=== PATIENT | female | born 1960 | race Two or more races ===

== ENCOUNTER 2025-05-27 10:06 | Outpatient (CLI) | payer MEDICAID ==
[2025-05-27 10:50] LABS: Nucleated Red Blood Cells % 0.0 %
[2025-05-27 10:52] LABS: Hematocrit 38.8 % (36.0-46.0); Hemoglobin 13.3 g/dL (12.2-16.2); Mean Corpuscular Hemoglobin 26.6 pg (28.0-32.0); Mean Corpuscular Volume 77.6 fL (80.0-100.0)
[2025-05-27 11:16] LABS: Microalb/Creat Ratio, Urine 14.0
[2025-05-27 11:17] LABS: Alanine Aminotransferase 15 U/L (7-40); Albumin 4.4 g/dL (3.2-4.8); Alkaline Phosphatase 108 U/L (46-116); Anion Gap 10 (5-15); BUN/Creatinine Ratio 9.5 (10.0-20.0); Blood Urea Nitrogen 9 mg/dL (9-23); Calcium 9.2 mg/dL (8.7-10.4); Carbon Dioxide 28 mmol/L (20-31); Chloride 99 mmol/L (98-107); Potassium 3.8 mmol/L (3.5-5.1); Sodium 137 mmol/L (136-145); Total Protein 7.4 g/dL (5.7-8.2)
[2025-05-27 11:18] LABS: Bilirubin, Total 0.7 mg/dL (0.2-1.0)
[2025-05-27 11:21] LABS: Glucose 349 mg/dL (74-106)
[2025-05-27 11:37] LABS: Cholesterol 200 mg/dL (< 200); HDL Cholesterol 38 mg/dL (40-59); Triglycerides 347 mg/dL (< 150)
== END 2025-05-27 17:00 | disposition home or self-care (01) ==
LOC: LAB 10:06
PROVIDERS: ATTEND Nurse Practitioner Family
DX: I12.9 Hypertensive chronic kidney disease with stage 1 through stage 4 chronic kidney disease, or unspecified chronic kidney disease (principal); E11.22 Type 2 diabetes mellitus with diabetic chronic kidney disease; N18.9 Chronic kidney disease, unspecified; E66.9 Obesity, unspecified; Z00.01 Encounter for general adult medical examination with abnormal findings
CPT/HCPCS: 36415; 80053; 80061; 82043; 82306; 82570; 83036; 84443; 85025

== ENCOUNTER 2025-06-22 13:46 | Inpatient (IN) | payer MEDICAID ==
[~2025-06-22] VITALS: Ht 165.1 cm; Wt 90.6 kg
--- NOTE | 2025-06-22 13:58 | ED.PDOC ---
HPI Comments 64-year-old female presents to the ED with a chief complaint of chest pain today (06/22/25). Patient states she woke up this morning experiencing chest pain, shortness of breath, headache. On 06/03/2025 she was diagnosed with sinusitis states she has not taken any medication. Yesterday, she noticed a pinkish color to her phlegm. Denies fever, chills, nausea, vomiting, diarrhea, dizziness, blurred vision, numbness/tingling, dysuria, hematuria, hematemesis. No other sy mptoms or modifying mitral present at this time. Chief Complaint: Chest Pain Time Seen by MD: 13:55 Reviewed Notes: Medications, Allergies Allergies: Coded Allergies: Hydroxyzine (Verified Allergy, Unknown, 06/22/25) Levofloxacin (Verified Allergy, Unknown, 06/22/25) Lisinopril (Verified Allergy, Unknown, 06/22/25) Information Source: Patient Mode of Arrival: Ambulatory Severity: Moderate Timing: Hours Duration: Since onset Prehospital treatment: None Location: Chest (L) Radiation: No Radiation Quality: Sharp Onset: At Rest PE Risk Factors: None History of: None Modifying Factors: Nothing Associated Signs and Symptoms: SOB Past Medical History Past Medical History (Other): enlarged heart 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 Pertinent RE RECORDING MIXER History Family History Family History: Reviewed,noncontributory to illness, No family hx of Cancer, No family hx of DM, No family hx of Heart prakash, No family hx of HTN, No family hx ofKidney prakash, No family hx of Liver prakash, No family hx of Lung prakash, No family hx of Stroke Social History Smoker: Non-Smoker Alcohol: Denies ETOH Use Drugs: Denies Drug Use Lives In: Home Constitutional: denies: chills, diaphoresis, fatigue, fever, malaise, sweats, weakness, others EENTM: denies: blurred vision, double vision, ear bleeding, ear discharge, ear drainage, ear pain, ear ringing, eye pain, eye redness, hearing loss, mouth pain, mouth swelling, nasal discharge, nose bleeding, nose congestion, nose pain, photophobia, tearing, throat pain, throat swelling, voice changes, others Respiratory: reports: shortness of breath; denies: cough, hemoptysis, orthopnea, SOB at rest, SOB with excertion, stridor, wheezing, others Cardiovascular: reports: chest pain; denies: dizzy spells, diaphoresis, Dyspnea on exertion, edema, irregular heart beat, left arm pain, lightheadedness, palpitations, PND, syncope, others Gastrointestinal: denies: abdomen distended, abdominal pain, blood streaked bowels, constipated, diarrhea, dysphagia, difficulty swallowing, hematemesis, melena, nausea, poor appetite, poor fluid intake, rectal bleeding, rectal pain, vomiting, others Genitourinary: denies: abnormal vagina bleeding, burning, dyspareunia, dysuria, flank pain, frequency, hematuria, incontinence, pain, , vagina discharge, urgency, others Neurological: reports: headache; denies: dizziness, fainting, left sided numbness, left sided weakness, numbness, paresthesia, pre-existing deficit, right sided numbness, right sided weakness, seizure, speech problems, tingling, tremors, weakness, others Musculoskeletal: denies: back pain, gout, joint pain, joint swelling, muscle pain, muscle stiffness, neck pain, others Integumetry: denies: bruises, change in color, change in hair/nails, dryness, laceration, lesions, lumps, rash, wounds, others Allergic/Immunocompromised: denies: Difficulty Healing, Frequent Infections, Hives, Itching, others Hematologic/Lymphatic: denies: anemia, blood clots, easy bleeding, easy bruising, swollen glands, others Endocrine: denies: excessive hunger, excessive sweating, excessive thirst, excessive urination, flushing, intolerance to cold, intolerance to heat, unexplained weight gain, unexplained weight loss, others Psychiatric: denies: anxiety, bipolar disorder, depression, hopeless, panic disorder, schizophrenia, sleepless, suicidal, others All Other Systems: Reviewed and Negative Physical Exam General Appearance: Normal HEENT: Normal ENT Inspection, Pharynx Normal, TMs Normal Neck: Full Range of Motion, Non-Tender, Normal, Normal Inspection Respiratory: Chest Non-Tender, Lungs Clear, No Accessory Muscle Use, No Respiratory Distress, Normal Breath Sounds Cardiovascular: No Edema, No JVD, No Murmur, No Gallop, Normal Peripheral Pulses, Regular Rate/Rhythm Breast Exam: Deferred Gastrointestinal: No Organomegaly, Non Tender, No Pulsatile Mass, Normal Bowel Sounds, Soft Genitalia: Deferred Pelvic: Deferred Rectal: Deferred Extremities: No calf tenderness, Normal capillary refill, Normal inspection, Normal range of motion, Non-tender, No pedal edema Musculoskeletal : Apperance: Normal Neurologic: Alert, pulp drier firer II-XII nml as Tested, No Motor Deficits, Normal Affect, Normal Mood, No Sensory Deficits Cerebellar Function: Normal Reflexes: Normal Skin: Dry, Normal Color, Warm Lymphatic: No Adenopathy Was a procedure done? Was a procedure done?: No CP Differential Dx Differential Diagnosis: PAC's Differential Diagnosis: HTN Essential, HTN Accelerated, HTN Encephalopathy Differential Diagnosis: Gastritis, Myocardial Infarction, Pericarditis X-Ray, Labs, Meds, VS Vital Signs Date Time Temp Pulse Resp B/P (MAP) Pulse Ox O2 Delivery O2 Flow Rate FiO2 06/22/25 14:54 66 06/22/25 13:52 73 06/22/25 13:49 98.3 74 16 155/79 96 98.3 Lab Test 06/22/25 15:17 06/22/25 14:25 Range/Units Troponin I High Sensitivity Pending 6 </=34 ng/L White Blood Count 8.1 4.4-10.8 10^3/uL Red Blood Count 5.02 4.0-5.20 10^6/uL Hemoglobin 13.4 12.2-16.2 g/dL Hematocrit 39.7 36.0-46.0 % Mean Corpuscular Volume 79.1 L 80.0-100.0 fL Mean Corpuscular Hemoglobin 26.7 L 28.0-32.0 pg Mean Corpuscular Hemoglobin Concent 33.8 32.0-36.0 g/dL Red Cell Distribution Width 13.6 11.8-14.3 % Platelet Count 284 140-450 10^3/uL Mean Platelet Volume 7.6 6.9-10.8 fL Neutrophils (%) (Auto) 73.9 37.0-80.0 % Lymphocytes (%) (Auto) 15.1 10.0-50.0 % Monocytes (%) (Auto) 6.5 0.0-12.0 % Eosinophils (%) (Auto) 3.7 0.0-7.0 % Basophils (%) (Auto) 0.8 0.0-2.0 % Neutrophils # (Auto) 6.0 1.6-8.6 10 ^3/uL Lymphocytes # (Auto) 1.2 0.4-5.4 10 ^3/uL Monocytes # (Auto) 0.5 0-1.3 10 ^3/uL Eosinophils # (Auto) 0.3 0-0.8 10 ^3/uL Basophils # (Auto) 0.1 0-0.2 10 ^3/uL Nucleated Red Blood Cells 0.0 % Sodium Level 142 136-145 mmol/L Potassium Level 3.7 3.5-5.1 mmol/L Chloride Level 104 98-107 mmol/L Carbon Dioxide Level 26 20-31 mmol/L Anion Gap 12 5-15 Blood Urea Nitrogen 8 L 9-23 mg/dL Creatinine 0.84 0.550-1.02 mg/dL Glomerular Filtration Rate Calc 78 >90 mL/min BUN/Creatinine Ratio 9.5 L 10.0-20.0 Serum Glucose 139 H 74-106 mg/dL Calcium Level 9.2 8.7-10.4 mg/dL Time of 1ST Reevaluation: 14:25 Reevaluation 1ST: Unchanged Patient Education/Counseling: Diagnosis, Treatment, Prognosis Family Education/Counseling: No Family Present SEPSIS Sepsis Screen Physician Orders Electrocardigram (06/22/25 15:01) Electrocardigram (06/22/25 17:01) Chest Portable (06/22/25 14:19) Troponin-I Hs (06/22/25 15:19) Troponin-I Hs (06/22/25 17:19) Vital Signs Date Time Temp Pulse Resp B/P (MAP) Pulse Ox O2 Delivery O2 Flow Rate FiO2 06/22/25 14:54 66 06/22/25 13:52 73 06/22/25 13:49 98.3 74 16 155/79 96 98.3 Laboratory Tests Test 06/22/25 14:25 White Blood Count 8.1 10^3/uL (4.4-10.8) Departure 1 Departure Time of Disposition: 15:33 (Patient presented with chest pain that was concerning for possible STEMI, ACS, PE, Pneumonia, Muscle Strain, COPD, Dissection. Data: 1. I ordered and reviewed the result of at least 3 labs including a CBC, BMP, and Troponin. 2. I independently interpreted the following tests: EKG which shows sinus arrhythmia and Chest X-ray which shows benign chest.Risk:This patient has a high risk of morbidity due to further diagnostic testing or treatment and may suffer from an acute cardiac or respiratory disorder. Workup reveals concern for ACS and patient should be admitted for further workup and possible expert consultation. ) Impression: Primary Impression: Acute chest pain Additional Impression: Shortness of breath Disposition: ADMITTED INPATIENT Admit to: Med Surg Condition: Serious Critical Care Note Critical Care Time?: Yes Critical care comment: Acute chest pain Authorized and Performed by: César Brewer MD Total critical care time: Approximately 44 minutes Due to a high probability of clinically significant, life threatening deterioration, the patient required my highest level of preparedness to intervene emergently and I personally spent this critical care time directly and personally managing the patient. This critical care time included obtaining a history; examining the patient; pulse oximetry; ordering and review of studies; arranging urgent treatment with development of a management plan; evaluation of patient's response to treatment; frequent reassessment; and, discussions with other providers. This critical care time was performed to assess and manage the high probability of imminent, life-threatening deterioration that could result in multi-organ failure. It was exclusive of separately billable procedures and treating other patients and teaching time. Please see my other sections and the rest of the note for further information on patient assessment and treatment. Stability Stability form required: No Heart Score Heart Score: Heart Score Response (Comments) Value History Moderate Suspicious 1 EKG Repolarization Disturb 1 Age 45-64 1 Risk Factors >3 or Hx ASHD 2 Troponin >3 x's Normal limit 2 Total 7 I personally scribed for CÉSAR BREWER MD ([email or web address]) on 06/22/25 at 13:58. Electronically submitted by Marcia Carrasco ([email or web address]). CÉSAR BREWER MD Jun 22, 2025 13:58
--- NOTE | 2025-06-22 14:03 | ECG ---
[facility] Test Date: 2025-06-22 Test Time: 13:52:02 Pat Name: MEREDITH UNDERWOOD Department: ED Room: 0216T Gender: F Extrusion Supervisor: ramandeep : 1960 Requested By: CÉSAR SOTO Order Number: [id number] Reading MD: Booker Mcginnis Measurements Intervals [place] Rate: 73 P: -17 [place]: 173 QRS: -11 QRSD: 98 T: 101 QT: 405 QTc: 447 Interpretive Statements Sinus rhythm Nonspecific T abnormalities, lateral leads Baseline wander in lead(s) I,III,aVL,V1,V4,V5 Electronically Signed On 06-28-2025 14:10:44 PDT by Booker Mcginnis Please click the below link to view image of tracing.
[2025-06-22 14:43] LABS: Hematocrit 39.7 % (36.0-46.0); Hemoglobin 13.4 g/dL (12.2-16.2); Mean Corpuscular Hemoglobin 26.7 pg (28.0-32.0); Mean Corpuscular Volume 79.1 fL (80.0-100.0); Nucleated Red Blood Cells % 0.0 %
[2025-06-22 14:53] LABS: Chloride 104 mmol/L (98-107); Potassium 3.7 mmol/L (3.5-5.1); Sodium 142 mmol/L (136-145)
[2025-06-22 14:54] LABS: Anion Gap 12 (5-15); Calcium 9.2 mg/dL (8.7-10.4); Carbon Dioxide 26 mmol/L (20-31)
--- NOTE | 2025-06-22 14:57 | DVH ---
CLINICAL HISTORY: cp TECHNIQUE: Single view of the chest was obtained. COMPARISON: None FINDINGS: The heart size and pulmonary vasculature are normal. The lungs are clear. IMPRESSION: NO ACUTE CARDIOPULMONARY PROCESS.
[2025-06-22 14:59] LABS: BUN/Creatinine Ratio 9.5 (10.0-20.0); Blood Urea Nitrogen 8 mg/dL (9-23); Glucose 139 mg/dL (74-106)
[2025-06-22] MEDS ORDERED: NITROGLYCERIN 0.4 MG SL TAB SL PRN (16:30)
[2025-06-22] MEDS ORDERED: HYDROcodone-ACET 5/325MG TAB PO PRN (16:30)
[2025-06-22] MEDS ORDERED: DEXTROSE (50%) 50ML SYRG IV PRN (16:45)
[2025-06-22] MEDS: InsuLIN REG 1unit/0.01ml Soln (100units/ml) SC SCH ×2 (17:00→22:11)
--- NOTE | 2025-06-22 17:01 | DVHHPRES ---
History of Present Illness Resident Creating Document: VESTA RCIHEY RESIDENT History of Present Illness History of present illness: David Singh is a 64-year-old female with past medical history of type 2 diabetes mellitus, dyslipidemia, essential hypertension, osteoarthritis, aortic atherosclerosis, pulmonary nodules presen kristi to the hospital with complaints of chest pain since 4 days, cough sweating, headache and weakness since 9 days. She sees the cough was associated with yellow sputum. She rates the pain 7 on 10 in intensity, sharp in quality, on and off, with no radiation, no aggravating or relieving factors. Martha PMHx:type 2 diabetes mellitus, dyslipidemia, essential hypertension, osteoart hritis, aortic atherosclerosis, pulmonary nodules PSHx: Cholecystectomy Family history: Father of [place], small-cell lung cancer in sister for Social history: 30 pack year smoking history, denies alcohol use and drug use Home medication: Tizanidine, diclofenac, atorvastatin, Jardiance, losartan, aspirin, amlodipine, Allergic history: Hydroxyzine, levofloxacin, lisinopril Review of Systems Review of Systems General: patient denies fever, fatigue, weaknes, sweating, any recent changes in appetite and weight HEENT: No headaches, visiual changes, hearing loss, tinnitus, nasal congestion and discharge, and sore throat. Cardiovascular: Denies palpitations, dyspnea on exertion, orthopnea, or claudication. Complains of chest pain Respiratory: Complains of cough. Gastrointestinal: Denies nausea, vomiting, dysphagia, odynophagia, heartburn, abdominal pain, flatulence, bloating, diarrhea, constipation, change in stool, or blood in stool. Genitourinary: No dysuria, hematuria, discharge, frequency, urgency, nocturia, incontinence, and urinary retention. Endocrine: No heat or cold intolerance, polydipsia, polyuria, and polyphagia. Neurological: No dizziness, extremity weakness and numbness, tremors, gait disturbance, seizures, and memory impairment. Psychiatric: Denies depression, anxiety,or insomnia. Musculoskeletal: Denies neck pain, stiffness and swelling, back pain, muscle weakness, joint pain, stiffness, swelling, or limited range of motion. Skin: No rashes, itching, skin lesion, changes in hair, nail, skin texture and breast. Hematologic/Lymphatic: Denies easy bruising, bleeding tendencies, or lymph node enlargement. Allergies: Coded Allergies: Hydroxyzine (Verified Allergy, Unknown, 06/22/25) Levofloxacin (Verified Allergy, Unknown, 06/22/25) Lisinopril (Verified Allergy, Unknown, 06/22/25) Medications Current Medications Medications Dose Ordered Sig/Ronny Route Start Time Stop Time Status Last Admin Dose Admin Acetaminophen 325 mg Q4HP PRN PO 06/22/25 16:30 Acetaminophen/ Hydrocodone Bitart 1 tab Q4HP PRN PO 06/22/25 16:30 Nitroglycerin 0.4 mg Q5MINP PRN SL 06/22/25 16:30 Atorvastatin Calcium 20 mg HS PO 06/22/25 22:00 UNV Diagnostic Test (Pha) 1 strip ACHS 06/22/25 17:00 UNV Insulin Human Regular HS SC 06/22/25 22:00 UNV Insulin Human Regular AC SC 06/22/25 17:00 UNV Dextrose 50 ml UD PRN IV 06/22/25 16:45 UNV Aspirin 81 mg DAILY PO 06/23/25 10:00 UNV Losartan Potassium 25 mg DAILY PO 06/23/25 10:00 UNV Exam Vital Signs Vital Signs Date Time Temp Pulse Resp B/P (MAP) Pulse Ox O2 Delivery O2 Flow Rate FiO2 06/22/25 15:43 98.2 69 16 148/76 (100) 96 98.2 Exam General Appearance: Alert, Oriented X3, Cooperative, No acute distress HEENT: Atraumatic, PERRLA, EOMI, Mucous membrane moist/pink Respiratory: Clear to auscultation, Normal air movement Cardiovascular: Regular rate, Normal S1, Normal S2, No murmurs, chest wall tenderness present Abdominal: Normal bowel sounds, Soft, No tenderness, No hepatospenomegaly, No masses Extremities: No clubbing, No cyanosis, No edema, Normal pulses, No tenderness/swelling Skin: No rashes, No breakdown, No significant lesion Neuro: Normal gait, Normal speech, Strength at 5/5 X4 ext, Normal tone, Sensation intact, Cranial nerves 3-12 NL, Reflexes 2+ Psych/Mental Status: Mental status NL, Mood NL Labs/Xrays Labs Test 06/22/25 15:17 06/22/25 14:25 Range/Units Troponin I High Sensitivity 6 </=34 ng/L White Blood Count 8.1 4.4-10.8 10^3/uL Red Blood Count 5.02 4.0-5.20 10^6/uL Hemoglobin 13.4 12.2-16.2 g/dL Hematocrit 39.7 36.0-46.0 % Mean Corpuscular Volume 79.1 L 80.0-100.0 fL Mean Corpuscular Hemoglobin 26.7 L 28.0-32.0 pg Mean Corpuscular Hemoglobin Concent 33.8 32.0-36.0 g/dL Red Cell Distribution Width 13.6 11.8-14.3 % Platelet Count 284 140-450 10^3/uL Mean Platelet Volume 7.6 6.9-10.8 fL Neutrophils (%) (Auto) 73.9 37.0-80.0 % Lymphocytes (%) (Auto) 15.1 10.0-50.0 % Monocytes (%) (Auto) 6.5 0.0-12.0 % Eosinophils (%) (Auto) 3.7 0.0-7.0 % Basophils (%) (Auto) 0.8 0.0-2.0 % Neutrophils # (Auto) 6.0 1.6-8.6 10 ^3/uL Lymphocytes # (Auto) 1.2 0.4-5.4 10 ^3/uL Monocytes # (Auto) 0.5 0-1.3 10 ^3/uL Eosinophils # (Auto) 0.3 0-0.8 10 ^3/uL Basophils # (Auto) 0.1 0-0.2 10 ^3/uL Nucleated Red Blood Cells 0.0 % Sodium Level 142 136-145 mmol/L Potassium Level 3.7 3.5-5.1 mmol/L Chloride Level 104 98-107 mmol/L Carbon Dioxide Level 26 20-31 mmol/L Anion Gap 12 5-15 Blood Urea Nitrogen 8 L 9-23 mg/dL Creatinine 0.84 0.550-1.02 mg/dL Glomerular Filtration Rate Calc 78 >90 mL/min BUN/Creatinine Ratio 9.5 L 10.0-20.0 Serum Glucose 139 H 74-106 mg/dL Calcium Level 9.2 8.7-10.4 mg/dL SEPSIS Sepsis Screen Date sepsis recognized/suspect: Jun 22, 2025 Time Sepsis recognized/suspect: 1352 Recent Procedure: No On Antibiotic Therapy: No Respiratory Rate >20: No Heart Rate >90: No Temp<36 C (96.8 F) or >38.3 C: No SBP <90 or MAP <65 mmHG: No New Acute Mental Status Change: No Is the patient on CPAP, BIPAP,: No Physician Orders Electrocardigram (06/22/25 15:01) Electrocardigram (06/22/25 17:01) Chest Portable (06/22/25 14:19) Troponin-I Hs (06/22/25 17:19) Allergies (06/22/25 16:16) Code Status (06/22/25 16:16) Acetaminophen Tablet (Tylenol Tablet) (06/22/25 16:30) Hydrocodone-Acet 5/325mg Tab (Roland 5/32 (06/22/25 16:30) Complete Blood Count (06/23/25 04:00) Comprehensive Metabolic Panel (06/23/25 04:00) Cardiac Diet-2gna,Lofat,Lochol (06/22/25 Dinner) Echo 2d Mode Cardiac Dop (06/22/25 16:16) Condition: Fair (06/22/25 16:16) Nitroglycerin Sublingual (Ntrostat Subli (06/22/25 16:30) Stat Ekg For Chest Pain (06/22/25 16:16) Rn Hemodialysis For 24 Hours (06/22/25 16:16) Notify Of Changes From Base (06/22/25 16:16) Admit (06/22/25 16:21) Atorvastatin (Lipitor) (06/22/25 22:00) Glucose Blood (Accu-Chek Comfort Curve T (06/22/25 17:00) Insulin R (Human) (Insulin R) (06/22/25 22:00) Insulin R (Human) (Insulin R) (06/22/25 17:00) Dextrose 50% Syringe (06/22/25 16:45) Aspirin Tablet (06/23/25 10:00) Losartan Tablet (Cozaar Tablet) (06/23/25 10:00) Urinalysis (06/22/25 16:40) Erythrocyte Sedimentation Rate (06/22/25 16:40) Covid19 Antigen [place] (06/22/25 ) Rapid Influenza A&B (06/22/25 16:40) Respiratory Culture W/ Gs (06/22/25 16:40) Sputum Induction (06/22/25 16:40) Vital Signs Date Time Temp Pulse Resp B/P (MAP) Pulse Ox O2 Delivery O2 Flow Rate FiO2 06/22/25 15:43 98.2 69 16 148/76 (100) 96 98.2 06/22/25 14:54 66 06/22/25 13:52 73 06/22/25 13:49 98.3 74 16 155/79 96 98.3 Laboratory Tests Test 06/22/25 14:25 White Blood Count 8.1 10^3/uL (4.4-10.8) Assessment/Plan Assessment/Plan Assessment and plan Chest pain to rule out ACS Probably musculoskeletal, reproducible chest pain Aspirin Atorvastatin Follow Echo To rule out upper respiratory tract infection Follow influenza and COVID results Type 2 diabetes mellitus Sliding scale insulin Last hemoglobin A1c 9 Target BG in-hospital 140-180 Dyslipidemia Continue atorvastatin Essential hypertension Continue amlodipine and losartan Osteoarthritis Continue home medications Anxiety disorder Continue Bupropion PUD prophylaxis: protonix 40mg DVT prophylaxis: brisk movement. Barriers to discharge: Medical diagnosis and management in progress. Patient lives with family. Independent for ADL.. PCP: Dr. Martha Yanez Specialist Relevant To Admission: Nonrelevant Case discussed with Dr. Gonzalez Code Status: Full Code. Complex patient care discussion needed. Spend total 35 minutes for bedside assessment, case discussion and management. Plan discussed with: Patient My Orders Orders - VESTA RICHEY RESIDENT Procedure Category Date Status Time Allergies IRMA 06/22/25 In Process 16:16 Code Status CODE 06/22/25 Transmitted 16:16 Acetaminophen Tablet PHA 06/22/25 In Process (Tylenol Tablet) 16:30 Hydrocodone-Acet PHA 06/22/25 In Process 5/325mg Tab (Roland 16:30 Complete Blood Count LAB 06/23/25 Verified 04:00 Comprehensive LAB 06/23/25 Verified Metabolic Panel 04:00 Cardiac DIET 06/22/25 Transmitted Diet-2gna,Lofat,Lochol Dinner Echo 2d Mode Cardiac US 06/22/25 Logged DOP 16:16 Condition: Fair IRMA 06/22/25 In Process 16:16 Nitroglycerin PHA 06/22/25 In Process Sublingual (Ntrostat 16:30 Stat Ekg For Chest IRMA 06/22/25 In Process Pain 16:16 Rn Hemodialysis For IRMA 06/22/25 In Process 24 Hours 16:16 Notify Md Of Changes IRMA 06/22/25 In Process From Base 16:16 Admit ADMIT 06/22/25 Transmitted 16:21 Date of Service: Jun 22, 2025 Billing Provider: KAROL GONZALEZ MD Common Visit Codes: 77496-PEGOEJE INP/OBS CARE (HIGH) Secondary Visit Codes: 73174-[id number] CARE PLAN 30 MINUTES VESTA RICHEY RESIDENT Jun 22, 2025 17:01 KAROL GONZALEZ MD Jul 02, 2025 21:19
[2025-06-22] MEDS: ACCU-CHEK COMFORT CURVE STRIP VI SCH (17:24)
--- NOTE | 2025-06-22 18:28 | ECG ---
[facility] Test Date: 2025-06-22 Test Time: 16:52:39 Pat Name: MEREDITH UNDERWOOD Department: [facility] ED Patient ID: [id number] Room: 0216T Gender: F Clinical Phlebotomist: mike : 1960 Requested By: CÉSAR SOTO Order Number: [id number] Reading MD: Booker Mcginnis Measurements Intervals [place] Rate: 71 P: -16 [place]: 171 QRS: -17 QRSD: 98 T: 97 QT: 393 QTc: 428 Interpretive Statements Sinus rhythm LVH with secondary repolarization abnormality Anterior Q waves, possibly due to LVH Electronically Signed On 06-28-2025 14:12:12 PDT by Booker Mcginnis Please click the below link to view image of tracing.
[2025-06-22 20:22] LABS: COVID19 ANTIGEN SOFIA FIA NEGATIVE (NEGATIVE)
[2025-06-22 21:13] VITALS: BP 141/73; PULSE 65; PULSE 73; RESP 18; RESP 19; TEMP 96.4; O2SAT 94
[2025-06-22] MEDS ORDERED: ALBUAER3 IN (21:32)
[2025-06-22] MEDS ORDERED: DICL75TA3 PO (21:32)
[2025-06-22] MEDS ORDERED: AML5T PO (21:32)
[2025-06-22] MEDS ORDERED: ATOR20TA50 PO (21:32)
[2025-06-22] MEDS ORDERED: EMPA1TAB3 PO (21:32)
[2025-06-22] MEDS ORDERED: TIZA4CAP PO (21:32)
[2025-06-22] MEDS ORDERED: BUPR-239 PO (21:32)
[2025-06-22] MEDS ORDERED: ASPI81CH59 PO (21:32)
[2025-06-22] MEDS ORDERED: LOSA-533 PO (21:32)
[2025-06-22] MEDS ORDERED: INSU1INJ19 SC (21:32)
[2025-06-22] MEDS: ATORVASTATIN 20 MG TAB PO SCH (22:07)
[2025-06-22 22:28] VITALS: BP 149/87; PULSE 69; RESP 19; TEMP 98.2; O2SAT 94
[2025-06-23] VITALS (7 sets, daily range): BP systolic 136–159; BP diastolic 67–88; PULSE 62–70; RESP 17–18; TEMP 97.5–98.5; O2SAT 92–98
[2025-06-23] MEDS: ACETAMINOPHEN 325 MG TAB PO PRN (05:35)
[2025-06-23 06:05] LABS: Hematocrit 37.5 % (36.0-46.0); Hemoglobin 13.0 g/dL (12.2-16.2); Mean Corpuscular Hemoglobin 26.9 pg (28.0-32.0); Mean Corpuscular Volume 77.8 fL (80.0-100.0); Nucleated Red Blood Cells % 0.1 %
[2025-06-23 06:19] LABS: Alanine Aminotransferase 10 U/L (7-40); Albumin 4.4 g/dL (3.2-4.8); Alkaline Phosphatase 95 U/L (46-116); Anion Gap 12 (5-15); BUN/Creatinine Ratio 13.9 (10.0-20.0); Blood Urea Nitrogen 10 mg/dL (9-23); Calcium 9.4 mg/dL (8.7-10.4); Carbon Dioxide 25 mmol/L (20-31); Chloride 104 mmol/L (98-107); Potassium 3.7 mmol/L (3.5-5.1); Sodium 141 mmol/L (136-145); Total Protein 7.4 g/dL (5.7-8.2)
[2025-06-23 06:20] LABS: Bilirubin, Total 0.4 mg/dL (0.2-1.0)
[2025-06-23 06:21] LABS: Glucose 157 mg/dL (74-106)
[2025-06-23] MEDS: PANTOPRAZOLE 40 MG/10 ML VIAL INJ IV SCH (09:09)
[2025-06-23] MEDS: LOSARTAN POTASSIUM 25 MG TAB PO SCH (09:10)
--- NOTE | 2025-06-23 11:21 | ECG ---
[facility] Test Date: 2025-06-22 Test Time: 14:54:34 Pat Name: MEREDITH UNDERWOOD Department: ED Room: 0216T A Gender: F Snap Shearer: mike : 1960 Requested By: CÉSAR SOTO Order Number: [id number] Reading MD: Booker Mcginnis Measurements Intervals [place] Rate: 66 P: -13 [place]: 170 QRS: 2 QRSD: 102 T: 99 QT: 404 QTc: 424 Interpretive Statements Sinus rhythm Borderline repolarization abnormality Electronically Signed On 06-28-2025 14:11:26 PDT by Booker Mcginnis Please click the below link to view image of tracing.
[2025-06-23 11:38] LABS: Urine Protein, UAD Negative (Negative)
--- NOTE | 2025-06-23 16:33 | DVHINCON2 ---
Date Seen: Jun 23, 2025 Referring Physician MD Ariel Reason for Consultation Chest pain History of Present Illness This is a 64-year-old female who presented to the emergency room with a chief complaint of chest pain for nine days. Describes the chest pain as substernal, nonradiating, sharp/pressure-like, and associated with chest congestion including a productive cough with white sputum. At times the cough triggers the pain and other times it does not. She underwent a 12 lead electrocardiogram revealing a sinus rhythm with nonspecific T-wave inversion to lateral leads. Serial troponin levels are negative. Significant medical history includes hypertension, dyslipidemia, insulin-dependent diabetes mellitus, lung nodules for the past 10 years and currently awaiting referral to pulmonology, COPD, asthma, bronchitis, history of tobacco use including 38 pack-years, and obesity. Past Medical History Past medical history reviewed. No other significant than mentioned above. Past Surgical History Cholecystectomy Family History: FH: heart attack G8 BROTHER FH: heart failure G8 MOTHER, G8 FATHER, FH: lung cancer G8 SISTER, Family History Family history reviewed. Father: from CHF complications at 63 y.o. Mother: from CHF complications at 56 y.o. Youngest brother: CAD with coronary stent Social History Denies the use of illicit drugs, alcohol, or tobacco use. Quit tobacco at 51 y.o. including a total of 38 pack-years. Allergies: Coded Allergies: Hydroxyzine (Verified Allergy, Unknown, 06/22/25) Levofloxacin (Verified Allergy, Unknown, 06/22/25) Lisinopril (Verified Allergy, Unknown, 06/22/25) Home Meds Reported Medications Amlodipine Besylate (NORVASC TABLET) 5 Mg Tb, 10 MG PO DAILY, TAB 06/22/25 Bupropion Hcl (Bupropion Hcl Sr) 200 Mg Tab, 150 MG PO DAILY, TAB 06/22/25 Aspirin (Aspirin Low Dose) 81 Mg Chw, 81 MG PO DAILY, TAB.CHEW 06/22/25 Losartan Potassium (Losartan Potassium) 25 Mg Tab, 25 MG PO DAILY, TAB 06/22/25 Empagliflozin (Jardiance) 25 Mg Tab, 25 MG PO DAILY, TAB 06/22/25 Atorvastatin Calcium (ATORVASTATIN CALCIUM) 20 Mg Tab, 20 MG PO HS, TAB 06/22/25 Diclofenac Sodium (Diclofenac Sodium Dr) 75 Mg Tab, 75 MG PO BID, TAB 06/22/25 Insulin Glargine (Basaglar Kwikpen) 100 Unit/Ml Inj, 30 UNIT SC BID, INJ 06/22/25 Tizanidine Hydrochloride (Zanaflex) 4 Mg Cap, 4 MG PO HS, CAP 06/22/25 Albuterol Sulfate (VENTOLIN MDI) 90 Mcg Ih, 2 PUFF IN PRN for SHORTNESS OF BREATH, INH 06/22/25 Home Meds Home medications reviewed. Current Medications Current Medications Medications (Trade) Dose Ordered Sig/Ronny Route PRN Reason Start Time Stop Time Status Last Admin Acetaminophen (Tylenol Tablet) 325 mg Q4HP PRN PO MILD PAIN (1-3 PAIN SCALE) 06/22/25 16:30 06/23/25 05:35 Acetaminophen/ Hydrocodone Bitart ([place] 5/325MG Tab) 1 tab Q4HP PRN PO MODERATE PAIN (4-6 PAIN SCALE) 06/22/25 16:30 Nitroglycerin (Ntrostat Sublingual) 0.4 mg Q5MINP PRN SL FOR CHEST PAIN 06/22/25 16:30 Atorvastatin Calcium (Lipitor) 20 mg HS PO 06/22/25 22:00 06/22/25 22:07 Diagnostic Test (Pha) (Accu-Chek Comfort Curve T) 1 strip ACHS 06/22/25 17:00 06/23/25 11:38 Insulin Human Regular (InsuLIN R) HS SC 06/22/25 22:00 06/22/25 22:11 Insulin Human Regular (InsuLIN R) AC SC 06/22/25 17:00 06/23/25 11:45 Dextrose 50 ml UD PRN IV Blood Sugar LESS THAN 60 06/22/25 16:45 Aspirin 81 mg DAILY PO 06/23/25 10:00 06/23/25 09:09 Losartan Potassium (Cozaar Tablet) 25 mg DAILY PO 06/23/25 10:00 06/23/25 09:10 Pantoprazole Sodium (Protonix) 40 mg DAILY IV 06/23/25 10:00 06/23/25 09:09 Review of Systems Constitutional: No symptom reported Ears, Nose, & Throat: No symptom reported Eyes: No symptom reported Neurological: No symptoms reported Pulmonary/Respiratory: Productive cough of whitish sputum Cardiovascular: Chest pain Gastrointestinal: No symptom reported Genitourinary: No symptom reported Musculoskeletal: No symptom reported Skin: No symptom reported Psychiatric: No symptom reported Endocrine: No symptom reported Hemotologic/Lymphatic: No symptom reported Vital Signs Vital Signs Date Time Temp Pulse Resp B/P (MAP) Pulse Ox O2 Delivery O2 Flow Rate FiO2 06/23/25 09:10 158/88 06/23/25 08:00 70 06/23/25 07:30 97.7 17 92 97.7 06/22/25 21:13 Room Air* 0 21 Physical Exam General Appearance: Cooperative. Well developed. Obese. In no acute distress Head Exam: Normal inspection Neck Exam: Normal inspection. Non-tender. Normal alignment Pulmonary/Respiratory: Chest non-tender. Clear bilateral breath sounds Cardiovascular/Chest: Regular rate and rhythm. S1, S2. Sinus rhythm with nonspecific changes to lateral leads. No murmurs. No JVD. Peripheral Pulses: 2+ Radial (R). 2+ Radial (L). 2+ Pedal (R). 2+ Pedal (L) Abdominal Exam: Normal bowel sounds. Soft. Nontender. No hepatospenomegaly. No masses Ankle Exam: Negative ankle edema Lower extremities: Negative lower extremity edema Neuro/Mental Status: A&O x4. Coherent Thoughts/Psych: Normal thought pattern. Appropriate mood and affect. Good judgement and insight Appearance: In no acute distress Skin Exam: Normal inspection. Normal color. Warm. Dry Labs/Diagnostic Data Labs Test 06/23/25 11:37 06/23/25 10:00 06/23/25 04:57 06/22/25 19:50 Range/Units POC Glucose 244 H 70-106 mg/dl Urine Color Light-yellow Yellow Urine Clarity Clear Clear Urine pH 6.0 5.0-9.0 Urine Specific [place] 1.015 1.001-1.035 Urine Protein Negative Negative Urine Ketones Negative Negative Urine Blood Negative Negative /uL Urine Nitrite Negative Negative Urine Bilirubin Negative Negative Urine Urobilinogen Normal Negative mg/dL Urine Leukocyte Esterase Negative Negative /uL Urine RBC 1 0 - 4 /hpf Urine Microscopic WBC < 1 0-5 /HPF Urine Squamous Epithelial Cells Few <5 /hpf Urine Bacteria None seen None Seen /hpf Urine Glucose 4+ H Normal mg/dL White Blood Count 6.3 4.4-10.8 10^3/uL Red Blood Count 4.82 4.0-5.20 10^6/uL Hemoglobin 13.0 12.2-16.2 g/dL Hematocrit 37.5 36.0-46.0 % Mean Corpuscular Volume 77.8 L 80.0-100.0 fL Mean Corpuscular Hemoglobin 26.9 L 28.0-32.0 pg Mean Corpuscular Hemoglobin Concent 34.6 32.0-36.0 g/dL Red Cell Distribution Width 13.6 11.8-14.3 % Platelet Count 252 140-450 10^3/uL Mean Platelet Volume 7.6 6.9-10.8 fL Neutrophils (%) (Auto) 61.5 37.0-80.0 % Lymphocytes (%) (Auto) 21.6 10.0-50.0 % Monocytes (%) (Auto) 10.6 0.0-12.0 % Eosinophils (%) (Auto) 5.5 0.0-7.0 % Basophils (%) (Auto) 0.8 0.0-2.0 % Neutrophils # (Auto) 3.9 1.6-8.6 10 ^3/uL Lymphocytes # (Auto) 1.4 0.4-5.4 10 ^3/uL Monocytes # (Auto) 0.7 0-1.3 10 ^3/uL Eosinophils # (Auto) 0.3 0-0.8 10 ^3/uL Basophils # (Auto) 0.1 0-0.2 10 ^3/uL Nucleated Red Blood Cells 0.1 % Sodium Level 141 136-145 mmol/L Potassium Level 3.7 3.5-5.1 mmol/L Chloride Level 104 98-107 mmol/L Carbon Dioxide Level 25 20-31 mmol/L Anion Gap 12 5-15 Blood Urea Nitrogen 10 9-23 mg/dL Creatinine 0.72 0.550-1.02 mg/dL Glomerular Filtration Rate Calc 94 >90 mL/min BUN/Creatinine Ratio 13.9 10.0-20.0 Serum Glucose 157 H 74-106 mg/dL Calcium Level 9.4 8.7-10.4 mg/dL Total Bilirubin 0.4 0.2-1.0 mg/dL Aspartate Amino Transferase (AST) 15 13-40 U/L Alanine Aminotransferase (ALT) 10 7-40 U/L Alkaline Phosphatase 95 46-116 U/L Total Protein 7.4 5.7-8.2 g/dL Albumin 4.4 3.2-4.8 g/dL Influenza Type A Antigen Negative Negative Influenza Type B Antigen Negative Negative SARS-CoV-2 Antigen (Rapid) Negative NEGATIVE Test 06/22/25 17:41 06/22/25 14:25 Range/Units Troponin I High Sensitivity 5 </=34 ng/L Erythrocyte Sedimentation Rate 26 H 0-20 mm/hr Assessment Probable cardiac chest pain Rule out structural heart disease Pertinent family hx for CV disease Insulin-dependent diabetes mellitus, uncontrolled HgbA1C 11.7% Hypertension Dyslipidemia COPD/bronchitis Hx of tobacco dependence Obesity Plan/Recommendation (Dr. Mcginnis) We will continue further cardiac evaluation with a transthoracic echocardiogram to rule out structural heart disease. The patient has also been scheduled for a Cardiolite stress test with Lexiscan to rule out coronary ischemia. Heart Score is five placing her at a moderate risk for major cardiac events. In the meantime, continue lipid lowering agent, single antiplatelet therapy, blood pressure control, & tight glycemic control. Initiate DVT/DVT prophylaxis. Further orders per clinical course. Thank you for allowing us to participate in this patient's care. Please call if you have any questions or concerns. This medical document was created using an electronic medical record system with voice recognition software and computerized dictation system. Although this document has been carefully reviewed, there might still be some phonetic and typographical errors. Occasional wrong-word or ``sound-alike substitutions may have occurred due to the inherent limitations of voice recognition software. These areas are purely typographical due to imperfections of the software programs and do not reflect any compromise in the patient's medical care. Please read the chart carefully and recognize, using context, where these substitutions have occurred. Plan discussed with: Patient, Other NYHA Physical activity limitations: NA Date of Service: Jun 23, 2025 Billing Provider: MELVIN BARTON Cardiology Common Codes: [id number] INP/OBS CARE (High) MELVIN BARTON Jun 23, 2025 16:33
--- NOTE | 2025-06-23 16:45 | DVHPNRES ---
Progress Note Date Seen: Jun 23, 2025 Resident Creating Document: VESTA RICHEY RESIDENT Medical Necessity Reason Pt with a Central, PICC or Fol: No Subjective Review of Systems David Singh is a 64-year-old female with past medical history of type 2 diabetes mellitus, dyslipidemia, essential hypertension, osteoarthritis, aortic atherosclerosis, pulmonary nodules presented to the hospital with complaints of chest pain since 4 days, cough sweating, headache and weakness since 9 days. She sees the cough was associated with yellow sputum. She rates the pain 7 on 10 in intensity, sharp in quality, on and off, with no radiation, no aggravating or relieving factors. PMHx:type 2 diabetes mellitus, dyslipidemia, essential hypertension, osteoarthritis, aortic atherosclerosis, pulmonary nodules PSHx: Cholecystectomy Family history: Father of [place], small-cell lung cancer in sister for Social history: 30 pack year smoking history, denies alcohol use and drug use Home medication: Tizanidine, diclofenac, atorvastatin, Jardiance, losartan, aspirin, amlodipine, Allergic history: Hydroxyzine, levofloxacin, lisinopril patient seen at bedside. No new complaints. Patient says chest pain has come down. General: patient denies fever, fatigue, weaknes, sweating, any recent changes in appetite and weight HEENT: No headaches, visiual changes, hearing loss, tinnitus, nasal congestion and discharge, and sore throat. Cardiovascular: Denies palpitations, dyspnea on exertion, orthopnea, or claudication. Complains of chest pain Respiratory: Complains of cough. Gastrointestinal: Denies nausea, vomiting, dysphagia, odynophagia, heartburn, abdominal pain, flatulence, bloating, diarrhea, constipation, change in stool, or blood in stool. Genitourinary: No dysuria, hematuria, discharge, frequency, urgency, nocturia, incontinence, and urinary retention. Endocrine: No heat or cold intolerance, polydipsia, polyuria, and polyphagia. Neurological: No dizziness, extremity weakness and numbness, tremors, gait disturbance, seizures, and memory impairment. Psychiatric: Denies depression, anxiety,or insomnia. Musculoskeletal: Denies neck pain, stiffness and swelling, back pain, muscle weakness, joint pain, stiffness, swelling, or limited range of motion. Skin: No rashes, itching, skin lesion, changes in hair, nail, skin texture and breast. Hematologic/Lymphatic: Denies easy bruising, bleeding tendencies, or lymph node enlargement. Objective vital signs Vital Sign Date Time Temp Pulse Resp B/P (MAP) Pulse Ox O2 Delivery O2 Flow Rate FiO2 06/23/25 09:10 158/88 06/23/25 08:00 70 06/23/25 07:30 97.7 17 92 97.7 06/22/25 21:13 Room Air* 0 21 Total Intake and Output 06/22/25 06/22/25 06/23/25 15:00 23:00 07:00 Intake Total 250 ml Balance 250 ml medications Current Medications Medications Dose Ordered Sig/Ronny Route Start Time Stop Time Status Last Admin Dose Admin Acetaminophen 325 mg Q4HP PRN PO 06/22/25 16:30 06/23/25 05:35 325 MG Acetaminophen/ Hydrocodone Bitart 1 tab Q4HP PRN PO 06/22/25 16:30 Nitroglycerin 0.4 mg Q5MINP PRN SL 06/22/25 16:30 Atorvastatin Calcium 20 mg HS PO 06/22/25 22:00 06/22/25 22:07 20 MG Diagnostic Test (Pha) 1 strip ACHS 06/22/25 17:00 06/23/25 11:38 1 STRIP Insulin Human Regular HS SC 06/22/25 22:00 06/22/25 22:11 2 UNITS Insulin Human Regular AC SC 06/22/25 17:00 06/23/25 11:45 6 UNITS Dextrose 50 ml UD PRN IV 06/22/25 16:45 Aspirin 81 mg DAILY PO 06/23/25 10:00 06/23/25 09:09 81 MG Losartan Potassium 25 mg DAILY PO 06/23/25 10:00 06/23/25 09:10 25 MG Pantoprazole Sodium 40 mg DAILY IV 06/23/25 10:00 06/23/25 09:09 40 MG Chlorthalidone 25 mg DAILY@BREAKFAST PO 06/24/25 08:00 Enoxaparin Sodium 30 mg DAILY SC 06/24/25 10:00 Examination General Appearance: Alert, Oriented X3, Cooperative, No acute distress HEENT: Atraumatic, PERRLA, EOMI, Mucous membrane moist/pink Respiratory: Clear to auscultation, Normal air movement Cardiovascular: Regular rate, Normal S1, Normal S2, No murmurs, chest wall tenderness present Abdominal: Normal bowel sounds, Soft, No tenderness, No hepatospenomegaly, No masses Extremities: No clubbing, No cyanosis, No edema, Normal pulses, No tenderness/swelling Skin: No rashes, No breakdown, No significant lesion Neuro: Normal gait, Normal speech, Strength at 5/5 X4 ext, Normal tone, Sensation intact, Cranial nerves 3-12 NL, Reflexes 2+ Psych/Mental Status: Mental status NL, Mood NL laboratory and microbiology Laboratory Tests 06/23/25 04:57 Test 06/23/25 04:57 Range/Units Serum Glucose 157 H 74-106 mg/dL Problem List/Assessment/Plan Problem List/Assessment/Plan Assessment and plan Chest pain to rule out ACS Probably musculoskeletal, reproducible chest pain Aspirin Atorvastatin Follow Echo To rule out upper respiratory tract infection Follow influenza and COVID results Type 2 diabetes mellitus Sliding scale insulin Last hemoglobin A1c 9 Target BG in-hospital 140-180 Dyslipidemia Continue atorvastatin Essential hypertension Continue amlodipine and losartan Osteoarthritis Continue home medications Anxiety disorder Continue Bupropion PUD prophylaxis: protonix 40mg DVT prophylaxis: brisk movement. Barriers to discharge: Medical diagnosis and management in progress. Patient lives with family. Independent for ADL.. PCP: Dr. Martha Yanez Specialist Relevant To Admission: Nonrelevant Case discussed with Dr. Gonzalez Code Status: Full Code. Complex patient care discussion needed. Spend total 35 minutes for bedside assessment, case discussion and management. Plan discussed with: Patient Plan discussed with: Patient My Orders My Orders Orders - VESTA RICHEY Procedure Category Date Status Time Pantoprazole PHA 06/23/25 In Process (Protonix) 10:00 * Cardiology Consult CONS 06/23/25 Transmitted 07:06 Date of Service: Jun 23, 2025 Billing Provider: KAROL GONZALEZ MD Common Visit Codes: [id number] INP/OBS CARE(HIGH) Secondary Visit Codes: [id number] CARE PLAN 30 MINUTES VESTA RICHEY Jun 23, 2025 16:45 KAROL GONZALEZ MD Jul 02, 2025 21:18
[2025-06-23] MEDS: CHLORTHALIDONE 25 MG TAB PO ONE (17:35)
[2025-06-23] MEDS: INSULIN LANTUS (GLARGINE) 1 /0.01ml (100units/ml) SC SCH (21:48)
[2025-06-24] VITALS (8 sets, daily range): BP systolic 114–172; BP diastolic 61–84; PULSE 64–79; RESP 16–18; TEMP 97.7–98.7; O2SAT 94–99
[2025-06-24 07:36] LABS: Hematocrit 39.3 % (36.0-46.0); Hemoglobin 13.3 g/dL (12.2-16.2); Mean Corpuscular Hemoglobin 26.5 pg (28.0-32.0); Mean Corpuscular Volume 78.2 fL (80.0-100.0); Nucleated Red Blood Cells % 0.0 %
[2025-06-24] MEDS: REGADENOSON 0.4 MG/5 ML SYRG IV ONE ×2 (08:55→09:00)
[2025-06-24] MEDS: ENOXAPARIN SOD 30 MG/0.3 ML SYRINGE SC SCH (09:57)
[2025-06-24] MEDS: CHLORTHALIDONE 25 MG TAB PO SCH (10:05)
[2025-06-24 11:18] LABS: Alanine Aminotransferase 10 U/L (7-40); Albumin 4.5 g/dL (3.2-4.8); Alkaline Phosphatase 93 U/L (46-116); Anion Gap 16 (5-15); BUN/Creatinine Ratio 10.3 (10.0-20.0); Calcium 9.8 mg/dL (8.7-10.4); Carbon Dioxide 22 mmol/L (20-31); Chloride 103 mmol/L (98-107); Potassium 3.7 mmol/L (3.5-5.1); Sodium 141 mmol/L (136-145); Total Protein 7.5 g/dL (5.7-8.2)
--- NOTE | 2025-06-24 11:24 | DVHPNRES ---
Progress Note Date Seen: Jun 24, 2025 Resident Creating Document: VESTA RICHEY RESIDENT Medical Necessity Reason Pt with a Central, PICC or Fol: No Subjective Review of Systems Patient seen at bedside. complains of headache. Had an episode of shortness and breath last night. She was put on 2L O2. David Singh is a 64-year-old female with past medical history of type 2 diabetes mellitus, dyslipidemia, essential hypertension, osteoarthritis, aortic atherosclerosis, pulmonary nodules presented to the hospital with complaints of chest pain since 4 days, cough sweating, headache and weakness since 9 days. She sees the cough was associated with yellow sputum. She rates the pain 7 on 10 in intensity, sharp in quality, on and off, with no radiation, no aggravating or relieving factors. PMHx:type 2 diabetes mellitus, dyslipidemia, essential hypertension, osteoarthritis, aortic atherosclerosis, pulmonary nodules PSHx: Cholecystectomy Family history: Father of [place], small-cell lung cancer in sister for Social history: 30 pack year smoking history, denies alcohol use and drug use Home medication: Tizanidine, diclofenac, atorvastatin, Jardiance, losartan, aspirin, amlodipine, Allergic history: Hydroxyzine, levofloxacin, lisinopril General: patient denies fever, fatigue, weaknes, sweating, any recent changes in appetite and weight HEENT: No headaches, visiual changes, hearing loss, tinnitus, nasal congestion and discharge, and sore throat. Cardiovascular: Denies palpitations, dyspnea on exertion, orthopnea, or claudication. Complains of chest pain Respiratory: Complains of cough. Gastrointestinal: Denies nausea, vomiting, dysphagia, odynophagia, heartburn, abdominal pain, flatulence, bloating, diarrhea, constipation, change in stool, or blood in stool. Genitourinary: No dysuria, hematuria, discharge, frequency, urgency, nocturia, incontinence, and urinary retention. Endocrine: No heat or cold intolerance, polydipsia, polyuria, and polyphagia. Neurological: No dizziness, extremity weakness and numbness, tremors, gait disturbance, seizures, and memory impairment. Psychiatric: Denies depression, anxiety,or insomnia. Musculoskeletal: Denies neck pain, stiffness and swelling, back pain, muscle weakness, joint pain, stiffness, swelling, or limited range of motion. Skin: No rashes, itching, skin lesion, changes in hair, nail, skin texture and breast. Hematologic/Lymphatic: Denies easy bruising, bleeding tendencies, or lymph node enlargement. Objective vital signs Vital Sign Date Time Temp Pulse Resp B/P (MAP) Pulse Ox O2 Delivery O2 Flow Rate FiO2 06/24/25 09:56 132/72 06/24/25 08:58 98.3 68 18 99 98.3 06/24/25 08:00 Room Air* 2 N/A Nasal Cannula* Total Intake and Output 06/23/25 06/23/25 06/24/25 15:00 23:00 07:00 Intake Total 560 ml 150 ml Balance 560 ml 150 ml medications Current Medications Medications Dose Ordered Sig/Ronny Route Start Time Stop Time Status Last Admin Dose Admin Acetaminophen 325 mg Q4HP PRN PO 06/22/25 16:30 06/24/25 09:55 325 MG Acetaminophen/ Hydrocodone Bitart 1 tab Q4HP PRN PO 06/22/25 16:30 Nitroglycerin 0.4 mg Q5MINP PRN SL 06/22/25 16:30 Atorvastatin Calcium 20 mg HS PO 06/22/25 22:00 06/23/25 21:43 20 MG Diagnostic Test (Pha) 1 strip ACHS 06/22/25 17:00 06/24/25 06:17 1 STRIP Insulin Human Regular HS SC 06/22/25 22:00 06/23/25 21:48 4 UNITS Insulin Human Regular AC SC 06/22/25 17:00 06/24/25 06:16 2 UNITS Dextrose 50 ml UD PRN IV 06/22/25 16:45 Aspirin 81 mg DAILY PO 06/23/25 10:00 06/24/25 09:55 81 MG Losartan Potassium 25 mg DAILY PO 06/23/25 10:00 06/24/25 09:56 25 MG Pantoprazole Sodium 40 mg DAILY IV 06/23/25 10:00 06/24/25 09:56 40 MG Chlorthalidone 25 mg DAILY@BREAKFAST PO 06/24/25 08:00 06/24/25 10:05 25 MG Enoxaparin Sodium 30 mg DAILY SC 06/24/25 10:00 06/24/25 09:57 30 MG Insulin Glargine 13 units HS SC 06/23/25 19:15 06/23/25 21:52 13 UNITS Examination General Appearance: Alert, Oriented X3, Cooperative, No acute distress HEENT: Atraumatic, PERRLA, EOMI, Mucous membrane moist/pink Respiratory: Clear to auscultation, Normal air movement Cardiovascular: Regular rate, Normal S1, Normal S2, No murmurs, chest wall tenderness present Abdominal: Normal bowel sounds, Soft, No tenderness, No hepatospenomegaly, No masses Extremities: No clubbing, No cyanosis, No edema, Normal pulses, No tenderness/swelling Skin: No rashes, No breakdown, No significant lesion Neuro: Normal gait, Normal speech, Strength at 5/5 X4 ext, Normal tone, Sensation intact, Cranial nerves 3-12 NL, Reflexes 2+ Psych/Mental Status: Mental status NL, Mood NL laboratory and microbiology Laboratory Tests 06/24/25 05:41 Test 06/24/25 05:41 Range/Units Serum Glucose Pending Problem List/Assessment/Plan Problem List/Assessment/Plan Assessment and plan Chest pain to rule out ACS reproducible chest pain Aspirin Atorvastatin Follow Echo Cardiology recommended stress test To rule out upper respiratory tract infection -ve influenza and COVID result Type 2 diabetes mellitus Sliding scale insulin Last hemoglobin A1c 9 Target BG in-hospital 140-180 Dyslipidemia Continue atorvastatin Essential hypertension Continue amlodipine and losartan Osteoarthritis Continue home medications Anxiety disorder Continue Bupropion PUD prophylaxis: protonix 40mg DVT prophylaxis: brisk movement. Barriers to discharge: Medical diagnosis and management in progress. Patient lives with family. Independent for ADL.. PCP: Dr. Martha Yanez Specialist Relevant To Admission: Nonrelevant Case discussed with Dr. Gonzalez Code Status: Full Code. Complex patient care discussion needed. Spend total 35 minutes for bedside assessment, case discussion and management. Plan discussed with: Patient Plan discussed with: Patient My Orders My Orders Orders - VESTA RICHEY Procedure Category Date Status Time Comprehensive LAB 06/24/25 In Process Metabolic Panel 04:00 D-Dimer LAB 06/24/25 Logged 09:55 Complete Blood Count LAB 06/25/25 Verified 04:00 Comprehensive LAB 06/25/25 Verified Metabolic Panel 04:00 Date of Service: Jun 24, 2025 Billing Provider: KAROL GONZALEZ MD Common Visit Codes: [id number] INP/OBS CARE(HIGH) VESTA RICHEY Jun 24, 2025 11:24 KAROL GONZALEZ MD Jul 02, 2025 21:18
[2025-06-24 11:29] LABS: Bilirubin, Total 0.6 mg/dL (0.2-1.0)
[2025-06-24 11:51] LABS: Blood Urea Nitrogen 8 mg/dL (9-23); Glucose 130 mg/dL (74-106)
--- NOTE | 2025-06-24 16:13 | DVHPN2 ---
Consult Progress Note Date Seen: Jun 24, 2025 Subjective Review of Systems: CVS:Normal, RESPIRATORY:Normal, NEURO:Normal Other Systems: Denies any cardiac symptoms Objective vital signs Vital Sign Date Time Temp Pulse Resp B/P (MAP) Pulse Ox O2 Delivery O2 Flow Rate FiO2 06/24/25 12:40 97.9 65 18 116/70 (85) 98 97.9 06/24/25 08:00 Room Air* 2 N/A Nasal Cannula* Total Intake and Output 06/23/25 06/23/25 06/24/25 15:00 23:00 07:00 Intake Total 560 ml 150 ml Balance 560 ml 150 ml medications Current Medications Medications Dose Ordered Sig/Ronny Route Start Time Stop Time Status Last Admin Dose Admin Acetaminophen 325 mg Q4HP PRN PO 06/22/25 16:30 06/24/25 09:55 325 MG Acetaminophen/ Hydrocodone Bitart 1 tab Q4HP PRN PO 06/22/25 16:30 Nitroglycerin 0.4 mg Q5MINP PRN SL 06/22/25 16:30 Atorvastatin Calcium 20 mg HS PO 06/22/25 22:00 06/23/25 21:43 20 MG Diagnostic Test (Pha) 1 strip ACHS 06/22/25 17:00 06/24/25 11:46 1 STRIP Insulin Human Regular HS SC 06/22/25 22:00 06/23/25 21:48 4 UNITS Insulin Human Regular AC SC 06/22/25 17:00 06/24/25 11:49 6 UNITS Dextrose 50 ml UD PRN IV 06/22/25 16:45 Aspirin 81 mg DAILY PO 06/23/25 10:00 06/24/25 09:55 81 MG Losartan Potassium 25 mg DAILY PO 06/23/25 10:00 06/24/25 09:56 25 MG Pantoprazole Sodium 40 mg DAILY IV 06/23/25 10:00 06/24/25 09:56 40 MG Chlorthalidone 25 mg DAILY@BREAKFAST PO 06/24/25 08:00 06/24/25 10:05 25 MG Enoxaparin Sodium 30 mg DAILY SC 06/24/25 10:00 06/24/25 09:57 30 MG Insulin Glargine 13 units HS SC 06/23/25 19:15 06/23/25 21:52 13 UNITS Examination: LUNGS:Normal, CVS:Normal, NEURO:Normal laboratory and microbiology Laboratory Tests 06/24/25 05:41 Test 06/24/25 05:41 Range/Units Serum Glucose 130 H 74-106 mg/dL Problem List/Assessment/Plan Problem List/Assessment/Plan Probable cardiac chest pain Rule out structural heart disease Pertinent family hx for CV disease Insulin-dependent diabetes mellitus, uncontrolled HgbA1C 11.7% Hypertension Dyslipidemia COPD/bronchitis Hx of tobacco dependence Obesity Plan/Recommendation (Dr. Mcginnis) Preliminary transthoracic echocardiogram revealed optimal LV function (dictated report pending). Preliminary Cardiolite stress test as read by Dr. Gomes is negative for ischemia (dictated report pending). Continue lipid lowering agent, blood pressure control, & tight glycemic control. There is no further cardiac work-up indicated at this time. Kindly call with any questions or concerns. Thank you for allowing us to participate in this patient's care. This medical document was created using an electronic medical record system with voice recognition software and computerized dictation system. Although this document has been carefully reviewed, there might still be some phonetic and typographical errors. Occasional wrong-word or ``sound-alike substitutions may have occurred due to the inherent limitations of voice recognition software. These areas are purely typographical due to imperfections of the software programs and do not reflect any compromise in the patient's medical care. Please read the chart carefully and recognize, using context, where these substitutions have occurred. Plan discussed with: Patient, Other Date of Service: Jun 24, 2025 Billing Provider: MELVIN BARTON Cardiology Common Codes: [id number] HOSP CARE(High MELVIN BARTON Jun 24, 2025 16:13
[2025-06-25 01:00] VITALS: BP 121/67; PULSE 65; RESP 14; TEMP 97.7; O2SAT 93
[2025-06-25 05:00] VITALS: BP 119/70; PULSE 65; RESP 16; TEMP 97.9; O2SAT 91
[2025-06-25 07:01] LABS: Nucleated Red Blood Cells % 0.1 %
[2025-06-25 07:04] LABS: Hematocrit 41.0 % (36.0-46.0); Hemoglobin 13.8 g/dL (12.2-16.2); Mean Corpuscular Hemoglobin 26.1 pg (28.0-32.0); Mean Corpuscular Volume 77.6 fL (80.0-100.0)
[2025-06-25 07:15] LABS: Alanine Aminotransferase 10 U/L (7-40); Albumin 4.5 g/dL (3.2-4.8); Alkaline Phosphatase 94 U/L (46-116); Anion Gap 11 (5-15); BUN/Creatinine Ratio 13.8 (10.0-20.0); Blood Urea Nitrogen 11 mg/dL (9-23); Calcium 9.7 mg/dL (8.7-10.4); Carbon Dioxide 30 mmol/L (20-31); Chloride 100 mmol/L (98-107); Glucose 95 mg/dL (74-106); Sodium 141 mmol/L (136-145)
[2025-06-25 07:16] LABS: Total Protein 7.6 g/dL (5.7-8.2)
[2025-06-25 07:17] LABS: Bilirubin, Total 0.6 mg/dL (0.2-1.0)
[2025-06-25 07:22] LABS: Potassium 3.3 mmol/L (3.5-5.1)
[2025-06-25 08:00] VITALS: PULSE 72
[2025-06-25 08:16] LABS: Cholesterol 122 mg/dL (< 200)
[2025-06-25 08:24] LABS: HDL Cholesterol 30 mg/dL (40-59); Triglycerides 177 mg/dL (< 150)
[2025-06-25 09:00] VITALS: BP 126/85; PULSE 79; RESP 20; TEMP 98.6; O2SAT 95
[2025-06-25] MEDS: POTASSIUM CHL 20 Meq TABLET PO ONE (09:14)
--- NOTE | 2025-06-25 10:43 | DVHSR ---
APPROVED REPORT EXAM: Two-dimensional and M-mode echocardiogram with Doppler and color Doppler. Blood Pressure: 144/79 mmHg INDICATION Chest Pain RISK FACTORS Height: 65, Weight: 200 DIMENSIONS LVDd4.8 (3.8-5.7cm)LA (2D)3.7 (1.9-4.0cm)Aortic Root3.4 (2.0-3.7cm) LVDs3.5 (2.5-4.0cm)LA (MM) (1.9-4.0cm)Aortic Cusp Exc1.6 (1.5-2.0cm) EF (%) 55.0 (55-70%)Rt. Atrium3.9 (1.9-4.0cm)Asc. Aorta cm IVSd1.3 (0.7-1.1cm)RV (D) (1.8-2.4cm) PWd1.2 (0.7-1.1cm) Mitral Valve MitralMitral Stenosis E wave0.65m/sMV Mean GR.mmHg A wave1.13m/sMV Peak GR.mmHg E/A ratio0.62D MVAcm2 DECEL [id number] 1/2 [id number] IVRTmsDop MVA2.69cm2 Aortic Valve Aortic ValveAortic Stenosis V11.42m/Brielle Mean GR.6mmHg V21.70m/Brielle Peak GR.12mmHg LVOT Diameter1.9 (1.8-2.4cm)Doppler AVA2.37cm2 Pulmonic Valve V21.02m/s Conclusion Sinus rhythm. Concentric LVH of mild degree. Mild mitral annular calcification. Mild thickening of the posterior mitral leaflet. Good excursion of the anterior leaflet. No stenosi s. Mild aortic sclerosis especially of the right coronary cusp. Left ventricular function is preserved at 60% with normal RV function. Dopplers unremarkable. No pericardial effusion masses or vegetations.
[2025-06-25 11:13] LABS: Total Iron Binding Capacity 334.0 ug/dL (250-425)
[2025-06-25 11:15] LABS: Iron 37.0 ug/dL (50-170)
[2025-06-25 13:00] VITALS: BP 145/90; PULSE 71; RESP 18; TEMP 98.3; O2SAT 97
[2025-06-25] MEDS ORDERED: PANT40T PO (14:55)
[2025-06-25] MEDS ORDERED: FER325T PO (14:56)
[2025-06-25] MEDS ORDERED: ERGO1CAP12 PO (15:03)
[2025-06-25 17:00] VITALS: BP 118/81; PULSE 74; RESP 16; TEMP 98; O2SAT 96
--- NOTE | 2025-06-25 17:09 | DVHDSRES ---
Discharge Summary Date of Admission Resident Creating Document: VESTA RICHEY RESIDENT Jun 22, 2025 at 16:21 Date of Discharge: Jun 25, 2025 Labs/Diagnostic Data: Laboratory Results Test 06/25/25 05:40 06/25/25 05:00 06/24/25 10:49 06/23/25 10:00 POC Glucose 114 mg/dl (70-106) White Blood Count 6.9 10^3/uL (4.4-10.8) Red Blood Count 5.29 10^6/uL (4.0-5.20) Hemoglobin 13.8 g/dL (12.2-16.2) Hematocrit 41.0 % (36.0-46.0) Mean Corpuscular Volume 77.6 fL (80.0-100.0) Mean Corpuscular Hemoglobin 26.1 pg (28.0-32.0) Mean Corpuscular Hemoglobin Concent 33.6 g/dL (32.0-36.0) Red Cell Distribution Width 13.6 % (11.8-14.3) Platelet Count 284 10^3/uL (140-450) Mean Platelet Volume 7.4 fL (6.9-10.8) Neutrophils (%) (Auto) 61.6 % (37.0-80.0) Lymphocytes (%) (Auto) 20.6 % (10.0-50.0) Monocytes (%) (Auto) 10.0 % (0.0-12.0) Eosinophils (%) (Auto) 7.0 % (0.0-7.0) Basophils (%) (Auto) 0.8 % (0.0-2.0) Neutrophils # (Auto) 4.3 10 ^3/uL (1.6-8.6) Lymphocytes # (Auto) 1.4 10 ^3/uL (0.4-5.4) Monocytes # (Auto) 0.7 10 ^3/uL (0-1.3) Eosinophils # (Auto) 0.5 10 ^3/uL (0-0.8) Basophils # (Auto) 0.1 10 ^3/uL (0-0.2) Nucleated Red Blood Cells 0.1 % Sodium Level 141 mmol/L (136-145) Potassium Level 3.3 mmol/L (3.5-5.1) Chloride Level 100 mmol/L (98-107) Carbon Dioxide Level 30 mmol/L (20-31) Anion Gap 11 (5-15) Blood Urea Nitrogen 11 mg/dL (9-23) Creatinine 0.80 mg/dL (0.550-1.02) Glomerular Filtration Rate Calc 83 mL/min (>90) BUN/Creatinine Ratio 13.8 (10.0-20.0) Serum Glucose 95 mg/dL (74-106) Calcium Level 9.7 mg/dL (8.7-10.4) Iron Level 37 ug/dL (50-170) Total Iron Binding Capacity 334 ug/dL (250-425) Percent Iron Saturation 11.1 % (15-50) Ferritin 71.1 ng/mL (10-291) Total Bilirubin 0.6 mg/dL (0.2-1.0) Aspartate Amino Transferase (AST) 17 U/L (13-40) Alanine Aminotransferase (ALT) 10 U/L (7-40) Alkaline Phosphatase 94 U/L (46-116) Total Protein 7.6 g/dL (5.7-8.2) Albumin 4.5 g/dL (3.2-4.8) Triglycerides Level 177 mg/dL (< 150) Cholesterol Level 122 mg/dL (< 200) LDL Cholesterol 64 mg/dL (< 100) HDL Cholesterol 30 mg/dL (40-59) Thyroid Stimulating Hormone (TSH) 1.44 uIU/mL (0.55-4.78) D-Dimer, Quantitative 0.64 mg/L FEU (0.0-0.49) Urine Color Light-yellow (Yellow) Urine Clarity Clear (Clear) Urine pH 6.0 (5.0-9.0) Urine Specific [place] 1.015 (1.001-1.035) Urine Protein Negative (Negative) Urine Ketones Negative (Negative) Urine Blood Negative /uL (Negative) Urine Nitrite Negative (Negative) Urine Bilirubin Negative (Negative) Urine Urobilinogen Normal mg/dL (Negative) Urine Leukocyte Esterase Negative /uL (Negative) Urine RBC 1 /hpf (0 - 4) Urine Microscopic WBC < 1 /HPF (0-5) Urine Squamous Epithelial Cells Few /hpf (<5) Urine Bacteria None seen /hpf (None Seen) Urine Glucose 4+ mg/dL (Normal) Test 06/22/25 19:50 06/22/25 17:41 06/22/25 14:25 Influenza Type A Antigen Negative (Negative) Influenza Type B Antigen Negative (Negative) SARS-CoV-2 Antigen (Rapid) Negative (NEGATIVE) Troponin I High Sensitivity 5 ng/L (</=34) Erythrocyte Sedimentation Rate 26 mm/hr (0-20) Other Laboratory Tests 06/25/25 05:00 Brief Hx & Hospital Course: David Singh is a 64-year-old female with past medical history of type 2 diabetes mellitus, dyslipidemia, essential hypertension, osteoarthritis presented to the hospital with complaints of chest pain since 4 days, cough sweating, headache and weakness since 9 days. She reported the cough was associated with yellow sputum. She rated the pain 7 on 10 in intensity, sharp in quality, on and off, with no radiation, no aggravating or relieving factors. While in the hospital her blood glucose was levels were elevated, she was treated with insulin sliding scale. Cardiology consultation was given. Stress test was negative for any ischemia. Echo did not reveal any abnormalities. Patient is symptomatically better and hence being discharged Condition at Discharge: Fair Final Diagnosis/Problems List Insulin-dependent diabetes mellitus, uncontrolled HgbA1C 11.7% Essential hypertension Dyslipidemia COPD/bronchitis Hx of tobacco dependence Obesity Anxiety disorder upper respiratory tract infection Osteoarthritis Discharge Disposition: Home Discharge Instruct/Medications Diet: Consistent carbohydrate Activity: No Restrictions, As Tolerated Follow Up/Referral: Follow up with PCP in 7 days Scheduled Amlodipine Besylate (Norvasc Tablet), 10 MG PO DAILY, (Reported) Aspirin (Aspirin Low Dose), 81 MG PO DAILY, (Reported) Atorvastatin Calcium (Atorvastatin Calcium), 20 MG PO HS, (Reported) Bupropion Hcl (Bupropion Hcl Sr), 150 MG PO DAILY, (Reported) Empagliflozin (Jardiance), 25 MG PO DAILY, (Reported) Ferrous Sulfate (Ferrous Sulfate), 325 MG PO DAILY Insulin Glargine (Basaglar Kwikpen), 30 UNIT SC BID, (Reported) Losartan Potassium (Losartan Potassium), 25 MG PO DAILY, (Reported) Pantoprazole Sodium Sesquihydr (Pantoprazole Sodium), 40 MG PO DAILY Tizanidine Hydrochloride (Zanaflex), 4 MG PO HS, (Reported) Scheduled PRN Albuterol Sulfate (Ventolin Mdi), 2 PUFF IN for SHORTNESS OF BREATH, (Reported) Discontinued Medications Diclofenac Sodium (Diclofenac Sodium Dr), 75 MG PO BID, (Reported) Discharge Statement: "Patient was advised to return to the ER or call 911 if any headaches, dizziness, shortness of breath, chest pain, abdominal pain, bleeding, fevers, or worsening of medical condition. Patient was counseled about treatment plan, medications, possible side effects, patientverbalized understanding. All questions were answered to the best of my ability. This discharge took greater then 30 minutes in planning, reviewing documentation, counseling the patient, and discussing with other team members." ASSESSMENT ASSESSMENT Assessment Date of Service: Jun 25, 2025 Billing Provider: KAROL SMITH MD Common Visit Codes: 75831-XCK/OBS DISCH DAY >30min VESTA RICHEY Jun 25, 2025 17:09 KAROL SMITH MD Jul 02, 2025 21:19
--- NOTE | 2025-06-25 18:49 | DVHSR ---
APPROVED REPORT Exam: Nuclear Stress Test BMI: 0 Stress Test Details Stress Test: Pharmacologic stress testing performed using 0.4 mg of regadenoson per 5 mL given IV ov er 10 seconds. HR Resting HR: 76 bpmMax Heart Rate (APMHR): 157.506168 bpm Max HR Achieved: 85 bpmTarget HR (85% APMHR): 133.600857 bpm % of APMHR: 54.14 Recovery HR: 77 bpm BP Resting BP: 132/70 mmHg Recovery BP: 143/75 mmHg ECG Resting ECG: Sinus Rhythm Clinical Reason for Termination: Completed protocol Nurse Comments Recieved pt. from [facility]. A/Ox4 on 2 L oxygen via NC. Connected to phototypesetting equipment monitor, VS stable. PIV f lushes well. Reviewed POC. Pt. verbalized understanding of procedure including risks and side effects , agrees for stress testing. Lexiscan stress test performed per protocol. [facility] tech administered Cardiolite. Pt. tolerated well . Pt. stable, no change on exam. VS returned to baseline. Transferred to [facility] via wheelchair w/ te ch. Stress ECG Conclusion lvef 56% normal perfusion scan no major ischemia NM EXAM: Myocardial Perfusion REST/STRESS Imaging Protocol: Rest Tc-99m/Stress Tc-99m 1 day Resting Data Rest SPECT myocardial perfusion imaging was performed in supine position 60 minutes following the int ravenous injection of 10.5 mCi of Tc-99m Sestamibi. Time of rest injection: 07:40 Date: 06/24/2025 Time of rest imagin:40 Date: 06/24/2025 Administration Route: IV Administration Site: Right Hand Pharmacologic Stress Pharmacologic stress test was performed by injecting Regadenoson 0.4 mg IV push followed by the intra venous injection of 28.1 mCi of Tc-99m Sestamibi. Time of stress injection: 09:09 Date: 06/24/2025 Time of stress imagin:09 Date: 06/24/2025 Administration Route: IV Administration Site: Right Hand Gated Stress SPECT was performed 60 minutes after stress injection. The images were gated to evaluate regional wall motion and calculate left ventricular ejection fracti on. Stress only was performed in the Supine position. Nuclear Conclusion Nuclear Findings: negative for ischemia lvef 56% normal perfusion scan no major ischemia
== END 2025-06-25 18:53 | disposition home or self-care (01) | DRG 203 ==
LOC: ER 13:58 → OVERFLOW 16:21 → TELE-CENTR 22:28
PROVIDERS: ADMIT Internal Medicine Geriatric Medicine; ATTEND Internal Medicine Geriatric Medicine
DX: M94.0 Chondrocostal junction syndrome [Tietze] (principal); E11.9 Type 2 diabetes mellitus without complications; E66.9 Obesity, unspecified; I10 Essential (primary) hypertension; F41.9 Anxiety disorder, unspecified; Z20.822 Contact with and (suspected) exposure to COVID-19; E78.5 Hyperlipidemia, unspecified; M19.09 Primary osteoarthritis, other specified site; J44.89 Other specified chronic obstructive pulmonary disease; Z90.49 Acquired absence of other specified parts of digestive tract; Z82.49 Family history of ischemic heart disease and other diseases of the circulatory system; Z87.891 Personal history of nicotine dependence; Z79.899 Other long term (current) drug therapy; Z79.4 Long term (current) use of insulin; Z68.33 Body mass index [BMI] 33.0-33.9, adult
CPT/HCPCS: 36415; 71045; 78452; 80048; 80053; 80061; 81001; 82728; 82962; 83540; 83550; 84443; 84484; 85025; 85379; 85652; 87426; 87804; 93005; 93017; 93306; 99291; G0378; J1815; J2470